=== PATIENT | female | born 1955 | race Two or more races ===

== ENCOUNTER 2019-12-12 14:42 | Inpatient (IN) | payer MEDICARE, MEDICAID ==
[~2019-12-12] VITALS: Ht 167.6 cm; Wt 57.6 kg
[2019-12-12] MEDS ORDERED: SODIUM CHLORIDE 0.9% 1,000 ML IV ONE (15:26)
[2019-12-12] MEDS ORDERED: MORPHINE SULFATE 4 MG/ML CPJ (NOT FOR IM USE) IV STA (15:26)
[2019-12-12] MEDS ORDERED: ONDANSETRON HCL 4MG/2ML INJ IV STA (15:26)
[2019-12-12 15:46] LABS: BASOPHILS % 1.9 % (0.0-2.0); EOSINOPHILS % 0.3 % (0.0-5.0); HEMATOCRIT. 45.7 % (36.0-48.0); HEMOGLOBIN. 15.6 g/dL (12.0-16.0); LYMPHOCYTES % 41.6 % (20.0-50.0); MEAN CORPUSCULAR HEMOGLOBIN 31.9 pg (28.0-32.0); MEAN CORPUSCULAR VOLUME 93.4 fL (81.0-99.0); MEAN PLATELET VOLUME 8.9 fl (7.4-10.4); MONOCYTES % 9.9 % (2.0-8.0); NEUTROPHILS % 46.3 % (40.0-76.0); PLATELET 330 x1000/uL (130-400); RED CELL DISTRIBUTION WIDTH 13.9 % (11.6-14.6)
[2019-12-12 15:54] LABS: INR 0.9; PROTHROMBIN TIME 10.1 sec (9.6-11.0)
[2019-12-12 15:55] LABS: CHLORIDE 105 mEq/L (98-107)
[2019-12-12] MEDS ORDERED: DIPHENHYDRAMINE 50MG/ML VIAL IV ONE (16:00)
[2019-12-12 16:02] LABS: ETHANOL BLOOD < 10 mg/dL
[2019-12-12 16:20] LABS: CLARITY URINE CLOUDY (CLEAR); COLOR URINE YELLOW (YELLOW); KETONES URINE NEGATIVE (NEGATIVE); LEUKOCYTE ESTERASE URINE NEGATIVE (NEGATIVE); NITRITE URINE POSITIVE (NEGATIVE); OCCULT BLOOD URINE 1+ (NEGATIVE); PH URINE 5.5 (4.5-8.0); PROTEIN URINE 2+ (NEGATIVE); SPECIFIC GRAVITY URINE 1.026 (1.005-1.030)
[2019-12-12 16:40] LABS: *AMPHETAMINES SCREEN URINE NEGATIVE (NEGATIVE); *BARBITURATES SCREEN URINE NEGATIVE (NEGATIVE); *BENZODIAZEPINES SCREEN URINE NEGATIVE (NEGATIVE); *COCAINE SCREEN URINE NEGATIVE (NEGATIVE); METHADONE URINE SCREEN NEGATIVE (NEGATIVE)
[2019-12-12 16:41] LABS: CANNABINOID URINE SCREEN PRESUMTIVE POSITIVE (NEGATIVE); OPIATES URINE SCREEN NEGATIVE (NEGATIVE); PHENCYCLIDINE URINE SCREEN NEGATIVE (NEGATIVE)
[2019-12-12] MEDS ORDERED: KETOROLAC 15MG/ML VIAL IV ONE (19:00)
[2019-12-12] MEDS ORDERED: CEFTRIAXONE 1 G PREMIX 50 ML IV ONE (19:00)
[2019-12-12] MEDS ORDERED: FENTANYL CITRATE/PF 50MCG/ML 2ML VIAL IV ONE (21:15)
[2019-12-12 22:50] VITALS: BP 136/75
[2019-12-12] MEDS ORDERED: LORAZEPAM 2MG/ML CPJ IV PRN (23:00)
[2019-12-12] MEDS ORDERED: CEFTRIAXONE 1 G PREMIX 50 ML IV SCH (23:00)
[2019-12-12] MEDS ORDERED: METF-414 PO (23:56)
[2019-12-12] MEDS ORDERED: GABA-531 PO (23:56)
[2019-12-13] VITALS: BP 136/75
[2019-12-13] MEDS: HYDROCODONE/ACETAMINOPHEN 5/325MG TABLET PO PRN ×2 (00:28→20:15)
[2019-12-13] MEDS: SODIUM CHLORIDE 0.9% 1,000 ML IV SCH ×2 (00:29→09:13)
[2019-12-13 04:00] VITALS: BP 145/77
[2019-12-13] MEDS ORDERED: DEXTROSE 50% WATER 50ML SYRINGE IV PRN (04:45)
[2019-12-13] MEDS: BLOOD SUGAR DIAGNOSTIC STRIP TEST SCH ×4 (07:31→21:15)
[2019-12-13 07:39] LABS: BASOPHILS % 1.5 % (0.0-2.0); HEMOGLOBIN. 13.5 g/dL (12.0-16.0); LYMPHOCYTES % 45.3 % (20.0-50.0); MEAN CORPUSCULAR HEMOGLOBIN 31.9 pg (28.0-32.0); MEAN CORPUSCULAR VOLUME 94.7 fL (81.0-99.0); MEAN PLATELET VOLUME 9.1 fl (7.4-10.4); MONOCYTES % 12.5 % (2.0-8.0); NEUTROPHILS % 40.7 % (40.0-76.0); PLATELET 274 x1000/uL (130-400); RED BLOOD CELL COUNT 4.23 mill/uL (4.2-5.4); RED CELL DISTRIBUTION WIDTH 13.7 % (11.6-14.6)
[2019-12-13 07:50] LABS: CHLORIDE 106 mEq/L (98-107)
[2019-12-13 08:00] VITALS: BP 125/72
[2019-12-13] MEDS: ACETAMINOPHEN 325MG TABLET PO PRN ×2 (08:05→13:43)
[2019-12-13] MEDS: ENOXAPARIN 40MG/0.4ML SYR SUBCUT SCH (08:05)
[2019-12-13] MEDS: INSULIN LISPRO 100 UNITS/ML SUBCUT SCH ×4 (08:06→21:39)
[2019-12-13] MEDS: INSULIN GLARGINE UD 100 UNITS/ML SYR SUBCUT SCH ×2 (10:41→21:20)
[2019-12-13] MEDS ORDERED: IPRATROPIUM/ALBUTEROL 0.5-3(2.5)MG/3ML NEB HHN PRN (11:30)
[2019-12-13 12:00] VITALS: BP 128/88
[2019-12-13 20:00] VITALS: BP 116/65
[2019-12-13] MEDS ORDERED: CEFTRIAXONE 1 G PREMIX 50 ML IV SCH (20:00)
[2019-12-13] MEDS: MORPHINE SULFATE 2 MG/ML CPJ (NOT FOR IM USE) IV PRN (23:40)
[2019-12-14] VITALS: BP 128/70
[2019-12-14 04:00] VITALS: BP 118/72
[2019-12-14] MEDS: MORPHINE SULFATE 2 MG/ML CPJ (NOT FOR IM USE) IV PRN ×2 (04:45→09:14)
[2019-12-14] MEDS: SODIUM CHLORIDE 0.9% 1,000 ML IV SCH (06:25)
[2019-12-14 06:33] LABS: HEMATOCRIT. 37.4 % (36.0-48.0); HEMOGLOBIN. 12.9 g/dL (12.0-16.0); MEAN CORPUSCULAR HEMOGLOBIN 32.2 pg (28.0-32.0); MEAN CORPUSCULAR VOLUME 92.9 fL (81.0-99.0); MEAN PLATELET VOLUME 8.7 fl (7.4-10.4); PLATELET 274 x1000/uL (130-400); RED BLOOD CELL COUNT 4.02 mill/uL (4.2-5.4); RED CELL DISTRIBUTION WIDTH 13.5 % (11.6-14.6)
[2019-12-14 07:02] LABS: CHLORIDE 109 mEq/L (98-107)
[2019-12-14] MEDS: BLOOD SUGAR DIAGNOSTIC STRIP TEST SCH ×2 (07:20→12:02)
[2019-12-14] MEDS: INSULIN LISPRO 100 UNITS/ML SUBCUT SCH ×2 (07:50→12:03)
[2019-12-14 08:00] VITALS: BP 120/70
[2019-12-14] MEDS ORDERED: LEVO500T2 MT (08:54)
[2019-12-14] MEDS: ENOXAPARIN 40MG/0.4ML SYR SUBCUT SCH (09:13)
[2019-12-14 09:47] LABS: PLATELET ESTIMATE NORMAL
[2019-12-14] MEDS ORDERED: INSULIN GLARGINE UD 100 UNITS/ML SYR SUBCUT SCH (10:00)
[2019-12-14 12:00] VITALS: BP 130/68
[2019-12-14 14:39] VITALS: BP 130/68
== END 2019-12-14 15:20 | disposition home or self-care (01) | DRG 463 ==
LOC: ER 14:42 → 6EST 19:17 → EDBEDREQSVC 19:19 → EDBEDREQ 19:19 → ENRESERV 21:56
PROVIDERS: ADMIT Internal Medicine Nephrology; ATTEND Internal Medicine Nephrology
DX: N12 Tubulo-interstitial nephritis, not specified as acute or chronic (principal); E11.65 Type 2 diabetes mellitus with hyperglycemia; J44.9 Chronic obstructive pulmonary disease, unspecified; E44.1 Mild protein-calorie malnutrition; Z98.51 Tubal ligation status; Z68.20 Body mass index [BMI] 20.0-20.9, adult; Z88.5 Allergy status to narcotic agent
CPT/HCPCS: 36415; 71045; 74176; 80048; 80053; 80305; 80320; 81003; 82962; 83036; 83605; 83735; 83880; 84484; 85025; 93005; 99285; J0696; J1200; J1650; J1815; J1885; J2270; J2405; J3010; J7030; G0480

== ENCOUNTER 2020-05-14 06:31 | Emergency (ER) | payer MEDICARE, MEDICAID ==
[~2020-05-14] VITALS: Ht 165.1 cm; Wt 60.0 kg
[~2020-05-14 06:31] MED LIST: GABA-531 PO; LEVO500T2 MT; METF-414 PO
[2020-05-14] MEDS ORDERED: KETOROLAC 30MG/ML VIAL IV ONE (08:15)
[2020-05-14 08:38] LABS: BASOPHILS % 0.8 % (0.0-2.0); EOSINOPHILS % 0.2 % (0.0-5.0); HEMATOCRIT. 52.4 % (36.0-48.0); HEMOGLOBIN. 17.7 g/dL (12.0-16.0); LYMPHOCYTES % 33.7 % (20.0-50.0); MEAN CORPUSCULAR HEMOGLOBIN 31.8 pg (28.0-32.0); MEAN PLATELET VOLUME 8.3 fl (7.4-10.4); MONOCYTES % 9.5 % (2.0-8.0); NEUTROPHILS % 55.8 % (40.0-76.0); PLATELET 337 x1000/uL (130-400); RED BLOOD CELL COUNT 5.57 mill/uL (4.2-5.4); RED CELL DISTRIBUTION WIDTH 15.1 % (11.6-14.6)
[2020-05-14 08:45] LABS: CHLORIDE 106 mEq/L (98-107)
[2020-05-14] MEDS ORDERED: MORPHINE SULFATE 4 MG/ML CPJ (NOT FOR IM USE) IV ONE (10:00)
[2020-05-14 11:00] VITALS: BP 132/85
== END 2020-05-14 12:27 | disposition home or self-care (01) ==
LOC: ER 06:31
DX: M79.18 Myalgia, other site (principal); E11.9 Type 2 diabetes mellitus without complications; M54.30 Sciatica, unspecified side; F17.200 Nicotine dependence, unspecified, uncomplicated; Z88.6 Allergy status to analgesic agent; Z71.6 Tobacco abuse counseling
CPT/HCPCS: 36415; 71045; 80053; 82962; 83880; 84484; 85025; 93005; 96374; 96375; 99285; 99406; J1885; J2270

== ENCOUNTER 2020-05-27 11:10 | Emergency (ER) | payer MEDICARE, MEDICAID ==
[~2020-05-27] VITALS: Ht 165.1 cm; Wt 50.0 kg
[2020-05-27] MEDS ORDERED: ONDANSETRON HCL 4MG/2ML INJ IV STA (12:11)
[2020-05-27] MEDS ORDERED: MORPHINE SULFATE 4 MG/ML CPJ (NOT FOR IM USE) IV STA (12:11)
[2020-05-27 12:34] LABS: CLARITY URINE CLEAR (CLEAR); COLOR URINE YELLOW (YELLOW); KETONES URINE NEGATIVE (NEGATIVE); LEUKOCYTE ESTERASE URINE TRACE (NEGATIVE); NITRITE URINE NEGATIVE (NEGATIVE); OCCULT BLOOD URINE 1+ (NEGATIVE); PH URINE 5.5 (4.5-8.0); PROTEIN URINE 2+ (NEGATIVE); SPECIFIC GRAVITY URINE 1.016 (1.005-1.030)
[2020-05-27 13:43] LABS: BASOPHILS % 0.4 % (0.0-2.0); HEMATOCRIT. 48.9 % (36.0-48.0); HEMOGLOBIN. 16.7 g/dL (12.0-16.0); MEAN CORPUSCULAR HEMOGLOBIN 31.5 pg (28.0-32.0); MEAN CORPUSCULAR VOLUME 92.4 fL (81.0-99.0); MEAN PLATELET VOLUME 8.7 fl (7.4-10.4); MONOCYTES % 13.5 % (2.0-8.0); NEUTROPHILS % 76.1 % (40.0-76.0); PLATELET 304 x1000/uL (130-400)
[2020-05-27 13:49] LABS: CHLORIDE 108 mEq/L (98-107)
[2020-05-27 13:51] LABS: PROTHROMBIN TIME 10.5 sec (9.6-11.0)
[2020-05-27 21:19] VITALS: BP 121/59
== END 2020-05-27 21:31 | disposition home or self-care (01) ==
LOC: ER 11:22
DX: M54.30 Sciatica, unspecified side (principal); G89.29 Other chronic pain; E11.9 Type 2 diabetes mellitus without complications; Z88.6 Allergy status to analgesic agent
CPT/HCPCS: 36415; 71045; 72128; 72131; 80053; 81003; 83605; 84484; 85025; 85610; 86850; 86900; 86901; 87086; 93005; 96374; 96375; 99285; J2270; J2405

== ENCOUNTER 2020-11-20 10:24 | Emergency (ER) | payer MEDICARE, MEDICAID ==
[~2020-11-20] VITALS: Ht 162.6 cm; Wt 59.0 kg
[~2020-11-20 10:24] MED LIST changes: -GABA-531 PO; +GABA-532 PO
[2020-11-20] MEDS ORDERED: ACETAMINOPHEN 500MG TABLET PO NR (10:44)
[2020-11-20] MEDS ORDERED: FAMOTIDINE 20MG/2ML VIAL IV NR (10:44)
[2020-11-20] MEDS ORDERED: SODIUM CHLORIDE 0.9% 1,000 ML IV ONE (10:45)
[2020-11-20 11:37] LABS: CHLORIDE 105 mEq/L (98-107)
[2020-11-20 11:39] LABS: BASOPHILS % 0.3 % (0.0-2.0); HEMATOCRIT. 45.7 % (36.0-48.0); HEMOGLOBIN. 15.6 g/dL (12.0-16.0); LYMPHOCYTES % 12.4 % (20.0-50.0); MEAN CORPUSCULAR HEMOGLOBIN 31.6 pg (28.0-32.0); MEAN CORPUSCULAR VOLUME 92.5 fL (81.0-99.0); MEAN PLATELET VOLUME 8.8 fl (7.4-10.4); MONOCYTES % 6.4 % (2.0-8.0); NEUTROPHILS % 80.9 % (40.0-76.0); PLATELET 327 x1000/uL (130-400); RED BLOOD CELL COUNT 4.94 mill/uL (4.2-5.4); RED CELL DISTRIBUTION WIDTH 14.3 % (11.6-14.6)
[2020-11-20] MEDS ORDERED: KETOROLAC 15MG/ML VIAL IV ONE (12:45)
[2020-11-20] MEDS ORDERED: IBUP-2029 MT (14:11)
[2020-11-20 14:17] VITALS: BP 108/68
== END 2020-11-20 14:30 | disposition home or self-care (01) ==
LOC: ER 10:24
DX: T50.905A Adverse effect of unspecified drugs, medicaments and biological substances, initial encounter (principal); E11.9 Type 2 diabetes mellitus without complications; I49.9 Cardiac arrhythmia, unspecified; Z88.6 Allergy status to analgesic agent; Z98.890 Other specified postprocedural states; Z13.9 Encounter for screening, unspecified; Y92.9 Unspecified place or not applicable
CPT/HCPCS: 36415; 71045; 80053; 83690; 85025; 85610; 93005; 96361; 96374; 96375; 99285; J1885; J3490

== ENCOUNTER 2021-02-11 09:15 | Emergency (ER) | payer MEDICARE, MEDICAID ==
[~2021-02-11] VITALS: Ht 167.6 cm; Wt 56.0 kg
[~2021-02-11 09:15] MED LIST changes: +IBUP-2029 MT
[2021-02-11] MEDS ORDERED: HYDROCODONE/ACETAMINOPHEN 5/325MG TABLET PO ONE (09:45)
[2021-02-11 10:33] VITALS: BP 120/78
== END 2021-02-11 10:33 | disposition home or self-care (01) ==
LOC: ER 09:15
DX: M54.5 Low back pain (principal); G89.29 Other chronic pain; E11.9 Type 2 diabetes mellitus without complications; M54.30 Sciatica, unspecified side; Z88.6 Allergy status to analgesic agent
CPT/HCPCS: 99283

== ENCOUNTER 2024-12-26 16:04 | Emergency (ER) | payer BC, MEDICAID ==
[~2024-12-26] VITALS: Ht 165.1 cm; Wt 60.0 kg
[~2024-12-26 16:04] MED LIST changes: +GABA-1180 PO; -GABA-532 PO
[2024-12-26 16:08] VITALS: O2SAT 97
[2024-12-26] MEDS: HYDROCODONE/ACETAMINOPHEN 10/325MG TABLET PO ONE (17:12)
[2024-12-26 17:41] LABS: BASOPHILS % 1.2 % (0.0-2.0); HEMATOCRIT. 42.1 % (36.0-48.0); HEMOGLOBIN. 14.1 g/dL (12.0-16.0); LYMPHOCYTES % 10.4 % (20.0-50.0); MEAN CORPUSCULAR HEMOGLOBIN 30.1 pg (28.0-32.0); MEAN CORPUSCULAR HGB CONC 33.4 g/dL (31.0-37.0); MEAN CORPUSCULAR VOLUME 90.1 fL (81.0-99.0); MEAN PLATELET VOLUME 8.4 fl (7.4-10.4); MONOCYTES % 6.6 % (2.0-8.0); NEUTROPHILS % 81.8 % (40.0-76.0); PLATELET 312 x1000/uL (130-400); RED BLOOD CELL COUNT 4.67 mill/uL (4.2-5.4); RED CELL DISTRIBUTION WIDTH 14.3 % (11.6-14.6); WHITE BLOOD COUNT 4.9 x1000/uL (4.5-11.0)
[2024-12-26 17:44] LABS: CHLORIDE 108 mEq/L (98-107); POTASSIUM 4.3 mEq/L (3.5-5.1); SODIUM 138 mEq/L (136-145)
[2024-12-26 17:45] LABS: CARBON DIOXIDE 27 mEq/L (21-32)
[2024-12-26 17:46] LABS: CALCIUM 9.5 mg/dL (8.7-10.4)
[2024-12-26 17:50] LABS: CREATININE 1.1 mg/dL (0.6-1.0); GLUCOSE 340 mg/dL (70-105); UREA NITROGEN BLOOD 16 mg/dL (9-23)
[2024-12-26 17:52] LABS: PROTHROMBIN TIME 10.5 sec (9.6-11.0); TROPONIN I HIGH SENSITIVITY 14 ng/L (3.0-34)
[2024-12-26 20:40] LABS: TROPONIN I HIGH SENSITIVITY 13 ng/L (3.0-34)
[2024-12-26] MEDS ORDERED: CYCL5TAB3 MT (20:51)
[2024-12-26] MEDS ORDERED: TOPUD MT (20:51)
[2024-12-26 21:19] VITALS: BP 112/64; PULSE 90; RESP 18; TEMP 37.2; O2SAT 98
[2024-12-26] MEDS ORDERED: IBUPROFEN 600MG TABLET PO ONE (21:30)
== END 2024-12-26 21:32 | disposition home or self-care (01) ==
LOC: ER 16:04 → EDBEDREQ 17:12 → CANBEDREQ 21:05 → ER 21:32
DX: M25.512 Pain in left shoulder (principal); E11.9 Type 2 diabetes mellitus without complications; E78.00 Pure hypercholesterolemia, unspecified; I10 Essential (primary) hypertension; Z88.5 Allergy status to narcotic agent; Z79.899 Other long term (current) drug therapy
CPT/HCPCS: 36415; 71045; 73030; 80048; 83880; 84484; 85025; 93005; 99285; A4606